=== PATIENT | male | born 1960 | race Caucasian/White ===

== ENCOUNTER 2017-05-28 23:24 | Emergency (ER) | payer BC ==
[~2017-05-28] VITALS: Ht 188 cm; Wt 95.3 kg
[2017-05-28 23:29] VITALS: BP_SYST 128
[2017-05-29] MEDS ORDERED: NACL 0.9% 1,000 ML IV ONE (00:11)
[2017-05-29] MEDS ORDERED: MORPHINE 4 MG/ML INJ. SYRINGE IVP ONE (00:15)
[2017-05-29] MEDS ORDERED: ONDANSETRON HCL 4 MG/2 ML VIAL IVP ONE (00:15)
[2017-05-29 00:31] LABS: BILIRUBIN,URINE NEGATIVE (NEGATIVE); BLOOD, URINE NEGATIVE (NEGATIVE); CLARITY/URINE CLEAR (CLEAR); COLOR,URINE YELLOW (YELLOW); GLUCOSE,URINE NEGATIVE (NEGATIVE); KETONES,URINE NEGATIVE (NEGATIVE); LEUKOCYTE ESTERASE ,URINE NEGATIVE (NEGATIVE); NITRITE, URINE NEGATIVE (NEGATIVE); PH,URINE 6.5 (5.0-8.0); PROTEIN URINE NEGATIVE (NEGATIVE); UROBILINOGEN,URINE 0.2 (0.2-1.0)
[2017-05-29 00:35] LABS: BASOPHILS % (AUTO) 0.3 % (0.0-2.0); EOSINOPHILS # (AUTO) 0.3 K/uL (0.0-0.4); EOSINOPHILS % (AUTO) 3.5 % (0.0-4.0); HEMATOCRIT 45.4 % (36-54); HEMOGLOBIN 15.1 g/dL (14.0-18.0); LYMPHOCYTES # (AUTO) 2.6 K/uL (1.0-5.5); LYMPHOCYTES % (AUTO) 25.8 % (20.5-51.5); MEAN CORPUSCULAR HEMOGLOBIN 31 pg (27-31); MEAN CORPUSCULAR HGB CONC 33 % (32-36); MEAN CORPUSCULAR VOLUME 93 fL (79.0-98.0); MONOCYTES # (AUTO) 0.9 K/uL (0.0-1.0); MONOCYTES % (AUTO) 8.6 % (1.7-9.3); NEUTROPHILS # (AUTO) 6.1 K/uL (1.8-7.7); NEUTROPHILS % (AUTO) 61.8 % (40.0-70.0); PLATELET COUNT (AUTO) 311 K/uL (130-430); RED BLOOD CELL COUNT(AUTO) 4.88 MIL/uL (4.2-6.2); RED CELL DISTRIBUTION WIDTH 12.8 % (9.0-15.0); WHITE BLOOD COUNT (AUTO) 9.9 K/uL (4.8-10.8)
[2017-05-29 00:40] LABS: CALCIUM 9.9 mg/dL (8.4-11.0); CREATININE 0.9 mg/dL (0.55-1.30); POTASSIUM 3.7 mmol/L (3.5-5.1)
[2017-05-29 00:45] LABS: ALBUMIN 3.6 g/dL (3.4-4.8); TOTAL BILIRUBIN 0.8 mg/dL (0.0-1.0)
[2017-05-29 04:02] VITALS: BP_SYST 134
== END 2017-05-29 04:02 | disposition home or self-care (01) ==
LOC: SED 23:24
DX: R10.13 Epigastric pain (principal); J45.909 Unspecified asthma, uncomplicated; I10 Essential (primary) hypertension
CPT/HCPCS: 36415; 74176; 76705; 80053; 81003; 83690; 85025; 96361; 96374; 96375; 99285; J2270; J2405; J7030

== ENCOUNTER 2023-05-10 17:21 | Emergency (ER) | payer BC ==
[~2023-05-10] VITALS: Ht 185.4 cm; Wt 78.5 kg
[2023-05-10 17:25] VITALS: PULSE 86; RESP 18; TEMP 98.3; O2SAT 98
[2023-05-10] MEDS ORDERED: ONDANSETRON HCL 4 MG/2 ML VIAL IVP ONE (17:45)
[2023-05-10] MEDS ORDERED: MORPHINE 4 MG INJ. 4 MG/ML VIAL IVP ONE (17:45)
[2023-05-10] MEDS ORDERED: NACL 0.9% 1,000 ML IV ONE (17:45)
[2023-05-10 17:54] LABS: BASOPHILS % (AUTO) 0.5 % (0.0-2.0); EOSINOPHILS # (AUTO) 0.2 K/uL (0.0-0.4); EOSINOPHILS % (AUTO) 2.2 % (0.0-4.0); HEMATOCRIT 46.4 % (36-54); HEMOGLOBIN 15.8 g/dL (14.0-18.0); LYMPHOCYTES # (AUTO) 2.3 K/uL (1.0-5.5); LYMPHOCYTES % (AUTO) 26.4 % (20.5-51.5); MEAN CORPUSCULAR HEMOGLOBIN 33 pg (27-31); MEAN CORPUSCULAR HGB CONC 34 % (32-36); MEAN CORPUSCULAR VOLUME 98 fL (79.0-98.0); MONOCYTES # (AUTO) 0.9 K/uL (0.0-1.0); MONOCYTES % (AUTO) 10.3 % (1.7-9.3); NEUTROPHILS # (AUTO) 5.3 K/uL (1.8-7.7); NEUTROPHILS % (AUTO) 60.6 % (40.0-70.0); PLATELET COUNT (AUTO) 309 K/uL (130-430); RED BLOOD CELL COUNT(AUTO) 4.72 MIL/uL (4.2-6.2); RED CELL DISTRIBUTION WIDTH 13.3 % (9.0-15.0); WHITE BLOOD COUNT (AUTO) 8.7 K/uL (4.8-10.8)
[2023-05-10 18:20] LABS: ALANINE AMINOTRANSFERASE 24 U/L (12-78); ALBUMIN 3.6 g/dL (3.4-4.8); ANION GAP 5 (5-15); ASPARTATE AMINOTRANSFERASE 16 U/L (10-37); CALCIUM 9.6 mg/dL (8.4-11.0); CARBON DIOXIDE 30 mmol/L (23-29); CHLORIDE 96 mmol/L (98-107); CREATININE 0.98 mg/dL (0.55-1.30); GFR AFRICAN AMERICAN 99 mL/min (>90); GLUCOSE 102 mg/dL (74-106); POTASSIUM 4.6 mmol/L (3.5-5.1); SODIUM SERUM 131 mmol/L (136-145); TOTAL PROTEIN, SERUM 7.1 g/dL (6.4-8.3); UREA NITROGEN, BLOOD 15 mg/dL (8-21)
[2023-05-10 18:21] LABS: GFR NON AFRICAN-AMERICAN 82 mL/min (>90)
[2023-05-10 18:22] LABS: LIPASE 31 U/L (16-77)
[2023-05-10 19:34] LABS: BILIRUBIN,URINE NEGATIVE (NEGATIVE); BLOOD, URINE NEGATIVE (NEGATIVE); CLARITY/URINE CLEAR (CLEAR); COLOR,URINE YELLOW (YELLOW); GLUCOSE,URINE NEGATIVE (NEGATIVE); KETONES,URINE 1+ (NEGATIVE); LEUKOCYTE ESTERASE ,URINE 2+ (NEGATIVE); NITRITE, URINE NEGATIVE (NEGATIVE); PH,URINE 7.5 (5.0-8.0); PROTEIN URINE NEGATIVE (NEGATIVE); UROBILINOGEN,URINE 0.2 (0.2-1.0)
[2023-05-10 20:03] LABS: BACTERIA,URINE MODERATE /HPF (None Seen)
[2023-05-10] MEDS ORDERED: CEPH-548 PO (20:12)
[2023-05-10] MEDS ORDERED: TRAM50TA2 PO (20:12)
[2023-05-10 20:26] VITALS: BP_SYST 132; PULSE 69; RESP 22; TEMP 98.6; O2SAT 97
== END 2023-05-10 20:26 | disposition home or self-care (01) ==
LOC: SED 17:21
DX: N39.0 Urinary tract infection, site not specified (principal); I10 Essential (primary) hypertension; J45.909 Unspecified asthma, uncomplicated
CPT/HCPCS: 99285; 96374; 76700; 96361; 96375; 80053; 81001; 82962; 83690; 85025; 87086; 84484; 36415; 93005; J2405; J2270; J7030; 81000; 81015

== ENCOUNTER 2024-02-03 12:30 | Emergency (ER) | payer BC ==
[~2024-02-03] VITALS: Ht 188 cm; Wt 79.4 kg
[~2024-02-03 12:30] MED LIST: CEPH-548 PO; TRAM50TA2 PO
[2024-02-03 12:33] VITALS: BP_SYST 143; PULSE 102; RESP 20; TEMP 98; O2SAT 96
[2024-02-03] MEDS: IPRATROPIUM/ALBUTEROL SULFATE 3 ML AMPUL.NEB (DUONEB) INH ONE (13:17)
[2024-02-03 14:39] VITALS: BP_SYST 143; PULSE 102; RESP 20; TEMP 98; O2SAT 94
== END 2024-02-03 14:50 | disposition home or self-care (01) ==
LOC: SED 12:30
DX: J45.901 Unspecified asthma with (acute) exacerbation (principal); I10 Essential (primary) hypertension; Z79.899 Other long term (current) drug therapy; Z79.2 Long term (current) use of antibiotics
CPT/HCPCS: 71045; 94640; 99283

== ENCOUNTER 2024-02-19 13:22 | Emergency (ER) | payer BC ==
[~2024-02-19] VITALS: Ht 175.3 cm; Wt 72.6 kg
[2024-02-19 13:31] VITALS: BP_SYST 152; PULSE 94; RESP 22; TEMP 98.3; O2SAT 98
--- NOTE | 2024-02-19 13:31 | NUR ---
Patient to ER bed 08 to gown for evaluation. Side rails up.
--- NOTE | 2024-02-19 13:32 | NUR ---
Pt BIB spouse from home r/t SOB. Pt stated he came in to the hospital on the for the same issue but it has not gotten better. Pt was saturating at 94% RA and is currently saturating at 98% 2L N/C. Pt takes a Wixela and Albuterol breathing tx at home. PMHx of asthma and HTN. NKA reported at this time. VSS.
[2024-02-19] MEDS: IPRATROPIUM BROM 0.5 MG/2.5 ML VIAL.NEB (ATROVENT) INH ONE ×2 (13:59→14:19)
[2024-02-19] MEDS: ALBUTEROL SULFATE 0.083% 2.5 MG/3 ML VIAL.NEB INH ONE ×2 (13:59→14:19)
[2024-02-19] MEDS: predniSONE 20 MG TABLET PO ONE (14:03)
--- NOTE | 2024-02-19 14:05 | NUR ---
DR NOLAND AT BEDSIDE FOR RE ASSESSMENT
--- NOTE | 2024-02-19 14:06 | NUR ---
RT CALLED FOR BREATHING TX
[2024-02-19] MEDS ORDERED: ALBU2.5V7 INH (14:08)
[2024-02-19] MEDS ORDERED: PRED20TA PO (14:08)
[2024-02-19] MEDS ORDERED: ALBMDI INH (15:09)
[2024-02-19] MEDS: LevALBUTEROL HCL 1.25 MG/0.5 ML *CONC.* VIAL.NEB (XOPENEX CONC.) INH ONE (15:22)
[2024-02-19 15:34] VITALS: BP_SYST 142; PULSE 86; RESP 22; TEMP 98.3; O2SAT 97
--- NOTE | 2024-02-19 15:35 | NUR ---
Patient given written and verbal discharge instructions and verbalizes understanding. ER MD DR. ZHANG discussed with patient the results and treatment provided. Patient in stable condition. ID arm band removed. Rx of ALBUTEROL SULFATE, VENTOLIN INHALER and PREDNISONE given. Patient educated on pain management and to follow up with PMD. Pain Scale 0/10. Opportunity for questions provided and answered. Medication side effect fact sheet provided.
== END 2024-02-19 15:35 | disposition home or self-care (01) ==
LOC: SED 13:22
DX: J45.901 Unspecified asthma with (acute) exacerbation (principal); R06.02 Shortness of breath; R05.9 Cough, unspecified; I10 Essential (primary) hypertension
CPT/HCPCS: 94640; 99285; J7612; J7512; 94760